=== PATIENT | male | born 1970 | race Caucasian/White ===

== ENCOUNTER 2018-02-08 21:22 | Inpatient (IN) ==
[2018-02-09] MEDS ORDERED: Acetaminophen 325 MG Tablet PO PRN ×2 (04:06→09:15)
[2018-02-09] MEDS ORDERED: Bisacodyl 10 MG Supp RECTAL PRN (04:06)
[2018-02-09] MEDS ORDERED: Dextrose 50% in Water 50 ML Vial IV.PUSH PRN (04:23)
[2018-02-09] MEDS: Piperacil/Tazo 3.375 GM Premix 3.375 GM/50 ML PIGGYBACK IV.SIG SCH ×4 (05:41→23:09)
[2018-02-09] MEDS: Heparin - SQ 10,000 UNITS/ML Vial SQ SCH ×2 (05:41→17:54)
[2018-02-09] MEDS: Sod Chloride 0.9% Inj 1,000 ML IV.CONT SCH ×3 (05:41→23:37)
[2018-02-09] MEDS: amLODIPine 5 MG Tablet PO SCH (08:33)
[2018-02-09] MEDS: Insulin NovoLOG Aspart Correctional Sugar Inj SQ SCH ×4 (08:40→20:46)
--- NOTE | 2018-02-09 09:19 | P.HPIM ---
History of Present Illness Primary Care Physician: UNKNOWN Patient is a pleasant 47-year-old male with past medical history of diabetes type 2 presents to emergency department for worsening left lower leg edema, swelling, and pain over the last 48 hours. Patient reports that he was in his usual state of health and that he put on a pair of tight socks and noticed that after taking the socks off that he had the impression of the sock around his ankle. Patient reports that later on in the day he noticed that it became very painful over that area and red. Patient denied fever and chills currently but says at the initial symptom presentation he did feel occasionally cold. Patient denied noticing any pus from the area but says that his become very tender when he touches it. Review of systems negative for chest pain, shortness breath, palpations, nausea, vomiting, or dizziness. In ED labwork with slight WBC elevation and he was given emperic Abx and admitted to obs. Venous Doppler negative. Chest x-ray unremarkable. Blood cultures were obtained in the emergency department. Patient noted to have evidence of acute kidney injury with creatinine of 1.4 and was started on IV fluid hydration. Diagnosis (1) Cellulitis: (2) Diabetes: (3) JULI (acute kidney injury): Review of Systems Review of Systems: all other systems reviewed are negative [facility] Medical History Medical History Diabetes (Acute) Surgical History Surgical History No history of previous surgery (Acute) Social History Social History Substance History: No History of Abuse Second Hand Smoke Exposure: No Smoking Status: Never smoker How Often Do You Have a Drink Containing Alcohol: Never Recent Travel in [facility] within the Last 8 Weeks: Yes Recent Out of Country Travel within the Last 8 Weeks: No Medications and Allergies Allergies Allergy/AdvReac Type Severity Reaction Status Date / Time No Known Allergies Allergy Verified 02/08/18 21:39 Home Medications Medication Instructions Recorded Confirmed Type metformin 1,000 mg PO BID 02/08/18 02/09/18 History amlodipine 5 mg PO DAILY 02/09/18 02/09/18 History Active Medications: Active Medications Acetaminophen (Tylenol) 650 mg PO Q4H PRN PRN Reason: Temp > 100.4 Al Hydroxide/Mg Hydroxide (Milk Of Magnesia Liq) 30 ml PO Q12H PRN PRN Reason: Mild Constipation Amlodipine Besylate (Norvasc) 5 mg PO DAILY [facility] Last Admin: 02/09/18 08:33 Dose: 5 mg Bisacodyl (Dulcolax Supp) 10 mg RECTAL DAILY PRN PRN Reason: SEVERE CONSITIPATION Dextrose (D50w Vial) 50 ml IV.PUSH UNSCH PRN PRN Reason: PER HYPOGLYCEMIA PROTOCOL Glucagon (Glucagon Inj) 1 mg OTHER PRN PRN PRN Reason: for Hypoglycemia Protocol Heparin Sodium (Porcine) (Heparin Inj) 5,000 units SQ Q12H [facility] Last Admin: 02/09/18 05:41 Dose: 5,000 units Sodium Chloride (Ns Inj) 1,000 mls @ 100 mls/hr IV.CONT .Q10H [facility] Last Admin: 02/09/18 05:41 Dose: 100 mls/hr Piperacillin/Tazobactam/Dextrose (Zosyn 3.375 Gm Premix) 3.375 gm in 50 mls @ 100 mls/hr IV.SIG Q6H [facility] Last Infusion: 02/09/18 06:16 Dose: Infused Insulin Aspart (Novolog Insulin Correctional Sugar Inj) 0 unit SQ ACHS AND 3AM EVERT; Protocol Last Admin: 02/09/18 08:40 Dose: Not Given Lactulose (Lactulose Liq) 30 ml PO DAILY PRN PRN Reason: SEVERE CONSITIPATION Ondansetron HCl (Zofran Inj) 4 mg IV.PUSH Q6H PRN PRN Reason: NAUSEA OR VOMITING Sodium Chloride (Ns Flush) 2 ml IV.FLUSH PRN PRN PRN Reason: FLUSH AFTER USING IV ACCESS Sodium Chloride (Ns Flush) 2 ml IV.FLUSH BID [facility] Last Admin: 02/09/18 08:34 Dose: Not Given Physical Exam Vital signs: Last Vital Signs Temp 98.6 F 02/09/18 07:25 Pulse 104 H 02/09/18 07:25 Resp 20 02/09/18 07:25 BP 117/61 02/09/18 07:25 Pulse Ox 94 L 02/09/18 07:25 Intake & Output 02/07/18 02/08/18 02/09/18 02/10/18 06:59 06:59 06:59 06:59 Intake Total 1050 / 1050 Output Total 0 / 0 Balance 1050 / 1050 Weight 116 kg gen: nad heent: eomi, PERRLA cvs: s1/s2. rrr resp: CTA bilaterally without wheezing, rales, rhonchi skin: bilateral UE tatoo's do not appear infected or erythematous vasc: LEFT nelson erythema with mild edema. no pus noted. RLE appears stable. 2 + DPP and radial pulse. Caprini VTE Risk Assessment Caprini VTE Risk Assessment: No/Low Risk (score <= 1) Caprini Risk Assessment Model: Point Value = 1 Point Value = 2 Point Value = 3 Point Value = 5 Age 41-60 Minor surgery BMI > 25 kg/m2 Swollen legs Varicose veins or History of unexplained or recurrent spontaneous Oral contraceptives or hormone replacement Sepsis (< 1 month) Serious lung disease, including pneumonia (< 1 month) Abnormal pulmonary function Acute myocardial infarction Congestive heart failure (< 1 month) History of inflammatory bowel disease Medical patient at bed rest Age 61-74 Arthroscopic surgery Major open surgery (> 45 min) Laparoscopic surgery (> 45 min) Malignancy Confined to bed (> 72 hours) Immobilizing plaster cast Central venous access Age >= 75 History of VTE Family history of VTE Factor V Leiden Prothrombin [id number] Lupus anticoagulant Anticardiolipin antibodies Elevated serum homocysteine Heparin-induced thrombocytopenia Other congenital or acquired thrombophilia Stroke (< 1 month) Elective arthroplasty Hip, pelvis, or leg fracture Acute spinal cord injury (< 1 month) Prophylaxis Regimen: Total Risk Factor Score Risk Level Prophylaxis Regimen 0-1 Low Early ambulation 2 Moderate Order ONE of the following: *Sequential Compression Device (SCD) *Heparin 5000 units SQ BID 3-4 Higher Order ONE of the following medications: *Heparin 5000 units SQ TID *Enoxaparin/Lovenox 40 mg SQ daily (WT < 150 kg, CrCl > 30 mL/min) *Enoxaparin/Lovenox 30 mg SQ daily (WT < 150 kg, CrCl > 10-29 mL/min) *Enoxaparin/Lovenox 30 mg SQ BID (WT < 150 kg, CrCl > 30 mL/min) AND/OR *Sequential Compression Device (SCD) 5 or more Highest Order ONE of the following medications: *Heparin 5000 units SQ TID (Preferred with Epidurals) *Enoxaparin/Lovenox 40 mg SQ daily (WT < 150 kg, CrCl > 30 mL/min) *Enoxaparin/Lovenox 30 mg SQ daily (WT < 150 kg, CrCl > 10-29 mL/min) *Enoxaparin/Lovenox 30 mg SQ BID (WT < 150 kg, CrCl > 30 mL/min) AND *Sequential Compression Device (SCD) Assessment and Plan (1) Cellulitis: Code(s): L03.90 - Cellulitis, unspecified Status: Acute (2) Diabetes: Code(s): E11.9 - Type 2 diabetes mellitus without complications Status: Acute (3) JULI (acute kidney injury): Code(s): N17.9 - Acute kidney failure, unspecified Status: Acute Plan Patient is a 47-year-old male with past medical history of type 2 diabetes presenting to emergency department with complaints of lower extremity redness, swelling, and edema worsening over the last 48 hours admitted for cellulitis Infectious disease: Cellulitis Given patient history of diabetes and worsening redness and erythema will continue empiric therapy with antibiotics. Blood cultures IV fluid hydration Antibiotics: Zosyn and vancomycin Nephrology: Acute kidney injury Continue IV fluid hydration Endocrinology: Diabetes type 2 Hold oral hypoglycemic inpatient Insulin sliding scale with coverage On discharge patient to follow-up yearly podiatry and ophthalmology examinations. Patient encouraged to exercise 30 minutes 5 times a week CODE STATUS: Full code DVT prophylaxis: Heparin Diet:Diabetic disposition: MedSur H&P: Quality VTE Deep Vein Thrombosis/Pulmonary Embolism Present on Admission: No
[2018-02-09] MEDS: Vancomycin Inj 1,250 MG in Sodium Chlor 0.9% Inj 250 ML IV.SIG SCH ×2 (11:30→21:12)
[2018-02-10] MEDS: Insulin NovoLOG Aspart Correctional Sugar Inj SQ SCH ×5 (02:19→21:29)
[2018-02-10 02:27] LABS: ABG Base Excess 2.5 mmol/L (-2-2); ABG PCO2 38 mmHg (38-42); ABG PO2 55 mmHg (61-120)
--- NOTE | 2018-02-10 02:28 | XR ---
EXAM DATE: 02/10/2018 2:22 AM EST AGE/SEX: 47 years / Male INDICATIONS: Cough. CLINICAL DATA: This is the patient's subsequent encounter. Patient reports that signs and symptoms h ave been present for 2 days and indicates a pain score of 0/10. MEDICAL/SURGICAL HISTORY: Diabetes. Sepsis. None. COMPARISON: No prior exams available for comparison. FINDINGS: The heart size is within normal limits. There is increased density at the left base with silhouetting of the lateral left hemidiaphragm and blunting of the left costophrenic angle. There is some promine nce of the interstitium. CONCLUSION: Suspected left lateral pleural disease. Some degree of fusion should be considered. Mild prominence of interstitium which could indicate underlying interstitial disease versus pulmonary venous hypertension/mild edema. Electronically signed by: Uzair Pringle MD Board Certified Radiologist 02/10/2018 2:27 AM EST
[2018-02-10] MEDS: Heparin - SQ 10,000 UNITS/ML Vial SQ SCH ×2 (05:34→17:58)
[2018-02-10] MEDS: Piperacil/Tazo 3.375 GM Premix 3.375 GM/50 ML PIGGYBACK IV.SIG SCH ×3 (05:34→17:58)
[2018-02-10] MEDS ORDERED: Petrolatum,White 4 GM STICK TOPICAL PRN (06:58)
[2018-02-10 08:32] LABS: Baso % (Auto) 0.2 % (0.0-2.0); Eos % (Auto) 0.1 % (0.0-4.0); Hematocrit 46.7 % (39.0-51.0); Hemoglobin 15.8 gm/dL (13.0-17.0); Lymph # (Auto) 1.5 th/mm3 (1.0-4.8); Lymph % (Auto) 13.4 % (9.0-44.0); Mean Corpuscular HGB Conc 33.8 % (32.0-36.0); Mean Corpuscular Hemoglobin 30.9 pg (27.0-34.0); Mean Corpuscular Volume 91.4 fL (80.0-100.0); Mean Platelet Volume 8.3 fL (7.0-11.0); Mono # (Auto) 1.6 th/mm3 (0.0-0.9); Mono % (Auto) 14.6 % (0.0-8.0); Neut # (Auto) 7.8 th/mm3 (1.8-7.7); Neut % (Auto) 71.7 % (16.0-70.0); Platelet Count 278 th/mm3 (150-450); White Blood Count 10.9 th/mm3 (4.0-11.0)
[2018-02-10 09:17] LABS: Calcium 8.6 mg/dL (8.5-10.1); Carbon Dioxide 27.9 meq/L (21.0-32.0); Potassium 3.7 meq/L (3.5-5.1)
[2018-02-10] MEDS: amLODIPine 5 MG Tablet PO SCH (10:23)
[2018-02-10] MEDS: Vancomycin Inj 1,250 MG in Sodium Chlor 0.9% Inj 250 ML IV.SIG SCH ×2 (10:23→21:28)
[2018-02-10] MEDS ORDERED: Influenza (Quadrivalent) Vaccine 0.5 ML Syringe IM ONE (15:30)
--- NOTE | 2018-02-10 15:56 | P.PNIM ---
Subjective Interval history: Patient seen and evaluated this morning at bedside. Overnight patient with episode of shortness of breath which she was given Lasix 40 mg IV and chest x-ray showing some mild fluid. At this time patient is feeling improved and says that the water pill helped his symptoms. Patient reports that his lower extremity swelling and redness has been improving over the last 24 hours with antibiotic therapy. Patient currently denies subjective fever chills. Physical Exam Vital signs: Last Vital Signs Temp 98.8 F 02/10/18 12:00 Pulse 87 02/10/18 12:00 Resp 14 02/10/18 12:00 BP 173/87 H 02/10/18 12:00 Pulse Ox 94 L 02/10/18 12:00 Intake & Output 02/08/18 02/09/18 02/10/18 02/11/18 06:59 06:59 06:59 06:59 Intake Total 1050 / 1050 5064.0 / 5064.0 312.5 / 312.5 Output Total 0 / 0 1500 / 1500 Balance 1050 / 1050 3564.0 / 3564.0 312.5 / 312.5 Weight 116 kg general: No acute distress, conversational HEENT: EOMI, PERRLA Cardiovascular: S1/S2. Respiratory: Clear to auscultation anteriorly and posteriorly. No intercostal muscle use. Gastroenterology: Soft, nontender, nondistended, no guarding or rebound appreciated. Positive bowel sounds Extremity: 2+ radial pulse, much improved lower extremity redness and improving edema. No calf tenderness at this time Results Labs CBC & Chem 7: 02/10/18 07:30 02/10/18 07:30 Imaging Imaging: Impressions Chest X-Ray 02/10/18 00:00 CONCLUSION: Suspected left lateral pleural disease. Some degree of fusion should be considered. Mild prominence of interstitium which could indicate underlying interstitial disease versus pulmonary venous hypertension/mild edema. Assessment and Plan (1) Cellulitis: Code(s): L03.90 - Cellulitis, unspecified Status: Acute (2) Diabetes: Code(s): E11.9 - Type 2 diabetes mellitus without complications Status: Acute (3) JULI (acute kidney injury): Code(s): N17.9 - Acute kidney failure, unspecified Status: Acute Plan Patient is a 47-year-old male with past medical history of type 2 diabetes presenting to emergency department with complaints of lower extremity redness, swelling, and edema worsening over the last 48 hours admitted for cellulitis Infectious disease: Cellulitis Given patient history of diabetes and worsening redness and erythema will continue empiric therapy with antibiotics. And consider transition to oral antibiotics for discharge with doxycycline 100 mg p.o. twice daily and amoxicillin 875 mg twice daily Blood cultures: No growth to date Antibiotics: Zosyn and vancomycin Pulmonary: Shortness of breath Suspect patient IV fluid hydration N to his episode of fluid overload for which she was given Lasix with improvement of symptoms. Continue to monitor and if improved may be discharged in 24 hours Nephrology: Acute kidney injury Resolved Endocrinology: Diabetes type 2 Hold oral hypoglycemic inpatient Insulin sliding scale with coverage On discharge patient to follow-up yearly podiatry and ophthalmology examinations. Patient encouraged to exercise 30 minutes 5 times a week CODE STATUS: Full code DVT prophylaxis: Heparin [facility]: Quality VTE Deep Vein Thrombosis/Pulmonary Embolism Present on Admission: No
[2018-02-11] MEDS: Piperacil/Tazo 3.375 GM Premix 3.375 GM/50 ML PIGGYBACK IV.SIG SCH ×3 (00:32→12:50)
[2018-02-11 01:04] VITALS: O2SAT 95
[2018-02-11] MEDS: Insulin NovoLOG Aspart Correctional Sugar Inj SQ SCH ×3 (04:14→12:50)
[2018-02-11] MEDS: Heparin - SQ 10,000 UNITS/ML Vial SQ SCH (06:04)
[2018-02-11 08:28] VITALS: RESP 17
[2018-02-11] MEDS: amLODIPine 5 MG Tablet PO SCH (09:06)
[2018-02-11] MEDS: Vancomycin Inj 1,250 MG in Sodium Chlor 0.9% Inj 250 ML IV.SIG SCH (09:06)
[2018-02-11 12:33] VITALS: BP 132/63; PULSE 81; TEMP 97.4
--- NOTE | 2018-02-11 12:44 | P.DS ---
DS: Providers Date of admission: 02/09/18 10:41 Primary care physician: UNKNOWN DS: Diagnosis Discharge Diagnosis (1) Cellulitis: Status: Acute (2) Diabetes: Status: Acute (3) JULI (acute kidney injury): Status: Acute DS: Summary 47-year-old male admitted with left lower extremity cellulitis. He had remarkable improvement following 2 doses of IV vancomycin. He complains of a chronic cough that has been bothering him on and off for the last year. Only gotten to further history about alternate causes him mentioned that he has severe snoring according to his girlfriend. Chest x-ray shows evidence of pulmonary hypertension which is often related to sleep apnea. He did admit to previous anabolic steroid use which can worsen the situation. He has no insurance coverage until the first of the year, after that point have encouraged him to get a sleep apnea study with his primary care provider as this may be related to multiple issues including his shortness of breath, cough , phlegm production, headaches, weight gain, hypertension, etc. I have adjusted his discharge antibiotics for cough sensitivity, changing doxycycline and amoxicillin to single dose of clindamycin which is more affordable but likely to be as effective. I am also sending him home with an albuterol inhaler to assist with his shortness of breath. I have encouraged him to undergo a cardiac workup given his history of anabolic steroid use. He is instructed to call to the floor if there are any side effects of the antibiotics of the right could potentially change him to something different if that occurs. Time Spent with Patient Total time spent providing and/or coordinating discharge services: Quality: VTE Deep Vein Thrombosis/Pulmonary Embolism Present on Admission: No Results Labs on day of discharge: Labs from last 24 hours 02/11/18 02/11/18 02/11/18 12:05 09:48 07:47 D-Dimer Quant (PE/DVT) 0.80 H POC Glucose 112 H 136 H 02/11/18 02/10/18 02/10/18 02:49 20:45 17:19 D-Dimer Quant (PE/DVT) POC Glucose 179 H 241 H 140 H Impressions ITS Impressions Chest X-Ray 02/10/18 00:00 CONCLUSION: Suspected left lateral pleural disease. Some degree of fusion should be considered. Mild prominence of interstitium which could indicate underlying interstitial disease versus pulmonary venous hypertension/mild edema. Discharge Plan Discharge Disposition Patient Disposition: Discharge Home Discharge Condition Condition: Good Discharge Order Discharge Orders: Discharge Order (Routine); Ordered 02/11/18 Ordered By: Juarez Montes Discharge Details Anticipated Discharge Date: 02/11/18 Discharge Comment: May go home with albuterol HFA inhaler Physicians Team Primary Care Provider: UNKNOWN, Attending Provider: Juarez Montes Rxs /Orders / Referrals /Forms Prescriptions: New clindamycin HCl 300 mg capsule 300 mg PO QID 7 Days Qty: 28 RF: 0 albuterol sulfate [Ventolin HFA] 90 mcg/actuation Hfa Aerosol Inhaler 2 puff INH Q4H PRN (Reason: Dyspnea) Qty: 1 RF: 0 Continue metformin 1,000 mg Tablet 1,000 mg PO BID RF: 0 amlodipine 5 mg Tablet 5 mg PO DAILY RF: 0 Referrals: UNKNOWN, [Primary Care Provider] - See Instructions Status ED Status: Admitted Observation Patient
== END 2018-02-11 14:16 | disposition home or self-care (01) ==
LOC: NEDDLT 02-09 03:30 → INTOOBSV 02-09 03:40 → NEPFCDU 02-09 03:40 → OBSVTOIN 02-09 03:40 → N07 02-10 14:10
PROVIDERS: ADMIT Family Medicine; ATTEND Family Medicine